=== PATIENT | male | born 1975 | race Caucasian/White ===

== ENCOUNTER 2020-04-24 05:44 | Emergency (ER) | payer SELFPAY ==
--- NOTE | 2020-04-24 07:05 | CRLCT ---
INDICATION: Left flank pain. History of nephrolithiasis COMPARISON: None TECHNIQUE: CT examination of the abdomen and pelvis was performed without intravenous contrast. Thin section axial images were obtained from the lung bases through the pubic symphysis. Oral contrast was not administered. Please note that all CT scans at this facility use dose modulation, iterative reconstruction, and/or weight-based dosing when appropriate to reduce radiation dose to as low as reasonably achievable. FINDINGS: LUNG BASES: The lung bases as visualized appear normal.The heart size is normal at the lung bases. LIVER/BILIARY SYSTEM:The liver is normal in size and configuration given the lack of intravenous contrast. There is no visible focal mass and there is no intra- or extra hepatic biliary ductal dilatation.The gall bladder appears normal. ADRENALS: Normal non-contrast appearance KIDNEYS, URETERS and BLADDER:Numerous intrarenal calculi bilaterally. These range in size from about 2 to about 4.5 millimeters. 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 Mild left hydronephrosis and left hydroureter due to a 4.5 millimeter stone at the inter orifice of the left ureterovesical junction. Incidental urachal remnant. No visible complication thereof on this noncontrast exam. SPLEEN:Normal non-contrast appearance. PANCREAS: Normal non-contrast appearance. RETROPERITONEUM and MESENTERY: There is no mass, adenopathy or aortic aneurysm. GASTROINTESTINAL SYSTEM: There is no evidence of diverticulitis, colitis, mechanical obstruction, or appendicitis. The small bowel as visualized appears normal. PELVIS: No mass, adenopathy or free fluid. OSSEOUS STRUCTURES and ABDOMINAL WALL: There is an age-appropriate appearance of the osseous structures.Transitional vertebral body at the lumbosacral junction. No visible anterior abdominal wall defect. OTHER: No free fluid or free air. IMPRESSION: 1. Left-sided obstructive uropathy due to a 4.5 millimeter calcified calculus at the inner orifice of the left ureterovesical junction. Nonobstructive intrarenal calculi bilaterally. 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 2. Urachal remnant. Please note that all CT scans at this facility use dose modulation, iterative reconstruction, and/or weight-based dosing when appropriate to reduce radiation dose to as low as reasonably achievable. Dictated by Herminio Valle MD @ Apr 24 2020 6:57AM Signed by Dr. Herminio Valle @ Apr 24 2020 7:02AM
--- NOTE | 2020-04-24 07:23 | EDM.PDOC ---
ED HPI GENERAL MEDICAL PROBLEM - General Chief Complaint: Flank Pain Stated Complaint: [facility] Time Seen by Provider: 04/24/20 06:17 Source of Information: Reports: Patient History Limitations: Reports: No Limitations - History of Present Illness INITIAL COMMENTS - FREE TEXT/NARRATIVE: 44-year-old male in the area for employment, does have a history of nephrolithiasis and renal colic developed pain in the middle of the night around 3 AM. Intense pain on the left side with nausea, no vomiting. No fevers or chills. Normal bowel movement. Patient was given 1 mg of IV Dilaudid, 30 of Toradol, and 4 of Zofran by EMS in route and has markedly improved on arrival Onset: Sudden Duration: Hour(s): (3 hours) Location: Reports: Other (Left flank) Left Flank Pain Score (Numeric/FACES): 4 - Related Data Allergies Allergy/AdvReac Type Severity Reaction Status Date / Time No Known Allergies Allergy Verified 04/24/20 05:47 Home Meds: Home Meds NK [No Known Home Meds] 04/24/20 [History] Past Medical History HEENT History: Reports: Other (See Below) Other HEENT History: optic neuritis Genitourinary History: Reports: Renal Calculus - Past Surgical History Neurological Surgical History: Reports: C-Spine Musculoskeletal Surgical History: Reports: Other (See Below) Other Musculoskeletal Surgeries/Procedures:: 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 Social & Family History - Tobacco Use Tobacco Use Status *Q: Current Every Day Tobacco User Years of Tobacco use: 25 Packs/Tins Daily: 1 - Caffeine Use Caffeine Use: Reports: Coffee - Recreational Drug Use Recreational Drug Use: No ED ROS GENERAL - Review of Systems Review Of Systems: See Below Constitutional: Denies: Fever, Chills, Malaise Respiratory: Denies: Shortness of Breath Cardiovascular: Denies: Chest Pain GI/Abdominal: Reports: Abdominal Pain, Nausea : Reports: Flank Pain, Urgency Skin: Reports: No Symptoms Neurological: Reports: No Symptoms ED EXAM, GENERAL - Physical Exam Exam: See Below Exam Limited By: No Limitations General Appearance: Alert, No Apparent Distress (Markedly improved after medications given by EMS) Head: Atraumatic Respiratory/Chest: Lungs Clear Cardiovascular: Regular Rate, Rhythm GI/Abdominal: Soft, Non-Tender Back Exam: No: CVA Tenderness (R), CVA Tenderness (L) Neurological: Alert, Oriented Psychiatric: Normal Affect, Normal Mood Course - Vital Signs Last Recorded V/S: Last Vital Signs Temp 95.8 F L 04/24/20 05:54 Pulse 65 04/24/20 05:54 Resp 14 04/24/20 05:54 BP 137/81 04/24/20 05:54 Pulse Ox 96 04/24/20 05:54 - Re-Assessments/Exams Free Text/Narrative Re-Assessment/Exam: 04/24/20 07:22 IMPRESSION: 1. Left-sided obstructive uropathy due to a 4.5 millimeter calcified calculus at the inner orifice of the left ureterovesical junction. Nonobstructive intrarenal calculi bilaterally. 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 2. Urachal remnant. 04/24/20 07:32 Patient was literally asymptomatic on discharge, probably already dropped the stone into the bladder but can use Toradol as prescribed if pain recurs. Departure - Departure Time of Disposition: 07:33 Disposition: Home, Self-Care 01 Clinical Impression: Ureteric colic - Discharge Information Instructions: Kidney Stones, [id number] Referrals: PCP,None [Primary Care Provider] - Forms: ED Department Discharge Care Plan Goals: If pain recurs, take 1 pain medication every 6 hours as needed. Return to the emergency room if pain is persistent and uncontrolled, you develop fever or persistent vomiting. Sepsis Event Note (ED) - Evaluation Sepsis Screening Result: No Definite Risk - Focused Exam Vital Signs: Vital Signs Temp Pulse Resp BP Pulse Ox 04/24/20 05:54 95.8 F L 65 14 137/81 96
== END 2020-04-24 07:33 | disposition home or self-care (01) ==
LOC: JP.ED 05:44
DX: N13.2 Hydronephrosis with renal and ureteral calculous obstruction (principal); F17.210 Nicotine dependence, cigarettes, uncomplicated
CPT/HCPCS: 74176; 99283; 99284-25